=== PATIENT | female | born 1990 | race Caucasian/White ===

== ENCOUNTER 2017-10-01 07:10 | Inpatient (IN) | payer MEDICAID, OTHER ==
[~2017-10-01] VITALS: Ht 157.5 cm; Wt 63.5 kg
[2017-10-01] MEDS ORDERED: AMPICILLIN 2,000 MG VIAL ONE ×3 (07:33→21:42)
[2017-10-01] MEDS ORDERED: PREN-380 PO (07:34)
[2017-10-01] MEDS ORDERED: LACTATED RINGERS 1,000 ML IV SCH (07:34)
[2017-10-01] MEDS ORDERED: NALBUPHINE 10 MG/ML AMP IVP PRN (07:35)
[2017-10-01] MEDS ORDERED: PROMETHAZINE 25 MG/ML VIAL IVP PRN (07:35)
[2017-10-01] MEDS ORDERED: AMPICILLIN 2,000 MG in NACL 0.9% MINI-BAG PLUS 100 ML IV SCH (07:35)
[2017-10-01] MEDS ORDERED: METHYLERGONOVINE 0.2 MG/ML AMP IM PRN (07:35)
[2017-10-01] MEDS ORDERED: OXYTOCIN 10 UNITS/ML VIAL IM SCH (07:35)
[2017-10-01] MEDS ORDERED: OXYTOCIN 20 UNITS in LACTATED RINGERS 1,000 ML IV SCH ×2 (07:35→18:17)
[2017-10-01] MEDS ORDERED: CARBOPROST 250 MCG/ML AMP IM PRN (07:35)
[2017-10-01 07:41] VITALS: BP 120/71
[2017-10-01] MEDS ORDERED: AMPICILLIN 1,000 MG in NACL 0.9% MINI-BAG PLUS 50 ML IV SCH (08:00)
[2017-10-01] MEDS ORDERED: OXYTOCIN 10 UNITS/ML VIAL ONE (08:20)
[2017-10-01] MEDS ORDERED: NALBUPHINE 10 MG/ML AMP ONE (08:20)
[2017-10-01] MEDS ORDERED: PROMETHAZINE 25 MG/ML VIAL ONE (08:21)
[2017-10-01] MEDS ORDERED: BUPIVACAINE 0.125%/NS PREMIX 250 ML ONE (08:31)
[2017-10-01] MEDS ORDERED: NALOXONE 0.4 MG/ML VIAL ONE (09:14)
[2017-10-01 10:05] LABS: BASOPHILS # (AUTO) 0.1 K/uL (0.00-0.22); BASOPHILS % (AUTO) 0.4 % (0.0-2.0); EOSINOPHILS # (AUTO) 0.2 K/uL (0-0.4); EOSINOPHILS % (AUTO) 1.5 % (0.0-4.0); HEMATOCRIT 35.9 % (36-48); HEMOGLOBIN 11.9 g/dL (12.0-16.0); LYMPHOCYTES # (AUTO) 2.2 K/uL (2.5-16.5); LYMPHOCYTES % (AUTO) 14.9 % (20.5-51.1); MEAN CORPUSCULAR HEMOGLOBIN 30 pg (27-31); MEAN CORPUSCULAR HGB CONC 33 g/dL (33-37); MEAN CORPUSCULAR VOLUME 91.8 fL (80-94); MONOCYTES # (AUTO) 1.1 K/uL (0.8-1.0); MONOCYTES % (AUTO) 7.5 % (1.7-9.3); NEUTROPHILS # (AUTO) 10.9 K/uL (1.8-7.7); NEUTROPHILS % (AUTO) 75.7 % (42.2-75.2); PLATELET COUNT (AUTO) 154 K/uL (140-450); RED BLOOD CELL COUNT(AUTO) 3.91 MIL/uL (4.20-5.40); RED CELL DISTRIBUTION WIDTH 13.8 % (11.6-13.7); WHITE BLOOD COUNT (AUTO) 14.5 K/uL (4.8-10.8)
[2017-10-01 10:14] LABS: ANION GAP 12.2 (8-16); CARBON DIOXIDE 25.1 mmol/L (21-32); CREATININE 0.9 mg/dL (0.6-1.3); POTASSIUM 3.3 mmol/L (3.5-5.1)
[2017-10-01 10:20] LABS: ALBUMIN 2.2 g/dL (3.4-5.0); TOTAL BILIRUBIN 0.2 mg/dL (0.0-1.0)
[2017-10-01 11:48] LABS: APPEARANCE,URINE CLOUDY (CLEAR); BILIRUBIN,URINE NEGATIVE (NEGATIVE); BLOOD, URINE NEGATIVE (NEGATIVE); COLOR,URINE YELLOW (YELLOW); LEUKOCYTE ESTERASE ,URINE NEGATIVE (NEGATIVE); NITRITE, URINE NEGATIVE (NEGATIVE); PH,URINE 7.5 (5.0-9.0); UGLUCOSE NEGATIVE (NEGATIVE)
[2017-10-01 11:56] LABS: RBC,URINE 0-5 (RARE) /HPF (0-5); WBC,URINE 0-5 (RARE) /HPF (0-5)
[2017-10-01] MEDS ORDERED: BUPIVACAINE 0.125%/NS PREMIX 250 ML EPI SCH (13:25)
[2017-10-01] MEDS ORDERED: TERBUTALINE 1 MG/ML VIAL SUBQ ONE (17:45)
[2017-10-01] MEDS ORDERED: METHYLERGONOVINE 0.2 MG/ML AMP ONE (17:57)
[2017-10-01] MEDS ORDERED: MISOPROSTOL 100 MCG TAB ONE (17:59)
[2017-10-01] MEDS ORDERED: METHYLERGONOVINE 0.2 MG/ML AMP IM ONE (18:20)
[2017-10-01] MEDS ORDERED: MEASLES, MUMPS, AND RUBELLA 1 VIAL SQVAC PRN (18:20)
[2017-10-01] MEDS ORDERED: ACETAMINOPHEN 325 MG TAB PO PRN (18:20)
[2017-10-01] MEDS ORDERED: MISOPROSTOL 25 MCG TAB RC ONE (18:20)
[2017-10-01] MEDS ORDERED: IBUPROFEN 600 MG TAB PO PRN (18:20)
[2017-10-02] MEDS ORDERED: AMPICILLIN 2,000 MG in NACL 0.9% 100 ML IV SCH ×2
[2017-10-02 08:31] LABS: BASOPHILS # (AUTO) 0.1 K/uL (0.00-0.22); BASOPHILS % (AUTO) 0.5 % (0.0-2.0); EOSINOPHILS # (AUTO) 0.4 K/uL (0-0.4); EOSINOPHILS % (AUTO) 2.8 % (0.0-4.0); HEMATOCRIT 29.7 % (36-48); HEMOGLOBIN 9.8 g/dL (12.0-16.0); LYMPHOCYTES # (AUTO) 2.6 K/uL (2.5-16.5); LYMPHOCYTES % (AUTO) 16.7 % (20.5-51.1); MEAN CORPUSCULAR HEMOGLOBIN 31 pg (27-31); MEAN CORPUSCULAR HGB CONC 33 g/dL (33-37); MEAN CORPUSCULAR VOLUME 92.3 fL (80-94); MONOCYTES # (AUTO) 1.1 K/uL (0.8-1.0); MONOCYTES % (AUTO) 6.9 % (1.7-9.3); NEUTROPHILS # (AUTO) 11.4 K/uL (1.8-7.7); NEUTROPHILS % (AUTO) 73.1 % (42.2-75.2); PLATELET COUNT (AUTO) 136 K/uL (140-450); RED BLOOD CELL COUNT(AUTO) 3.22 MIL/uL (4.20-5.40); RED CELL DISTRIBUTION WIDTH 13.8 % (11.6-13.7); WHITE BLOOD COUNT (AUTO) 15.5 K/uL (4.8-10.8)
--- NOTE | 2017-10-02 11:44 | NUR ---
PATIENT HAS BEEN SCREENED AND CATEGORIZED LOW NUTRITION RISK. PATIENT WILL BE SEEN WITHIN 7 DAYS OF ADMISSION. 10/07/[address]
== END 2017-10-03 15:15 | disposition home or self-care (01) | DRG 560 ==
LOC: MLD 07:10 → MFCC 22:28
PROVIDERS: ADMIT Obstetrics & Gynecology; ATTEND Obstetrics & Gynecology
PROC: 10E0XZZ Delivery of Products of Conception, External Approach (ICD-10-PCS; principal; 2017-10-01)
PROC: 3E0R3BZ Introduction of Anesthetic Agent into Spinal Canal, Percutaneous Approach (ICD-10-PCS; 2017-10-01)
PROC: 00HU33Z Insertion of Infusion Device into Spinal Canal, Percutaneous Approach (ICD-10-PCS; 2017-10-01)
PROC: 10907ZC Drainage of Amniotic Fluid, Therapeutic from Products of Conception, Via Natural or Artificial Opening (ICD-10-PCS; 2017-10-01)
PROC: 3E033VJ Introduction of Other Hormone into Peripheral Vein, Percutaneous Approach (ICD-10-PCS; 2017-10-01)
PROC: 3E0234Z Introduction of Serum, Toxoid and Vaccine into Muscle, Percutaneous Approach (ICD-10-PCS; 2017-10-01)
DX: O69.89X0 Labor and delivery complicated by other cord complications, not applicable or unspecified (principal); O76 Abnormality in fetal heart rate and rhythm complicating labor and delivery; Z82.49 Family history of ischemic heart disease and other diseases of the circulatory system; Z37.0 Single live birth; Z3A.39 39 weeks gestation of pregnancy; Z83.3 Family history of diabetes mellitus; Z23 Encounter for immunization
CPT/HCPCS: 36415; 80053; 81001; 85025; 86592; 86762; 86886; 86900; 86901; 87340; 90715; J0290; J2210; J2300; J2310; J2550; J2590; J3105; J3490; J7120